=== PATIENT | female | born 1990 | race Caucasian/White ===

== ENCOUNTER → 2016-12-02 | Outpatient (CLI) | payer OTHER | LOC: COL.RAD 06:08 | DX: R11.0 Nausea (principal) | CPT/HCPCS: A9537 ==

== ENCOUNTER → 2017-11-17 | Outpatient (CLI) | payer OTHER | LOC: MC.RAD 08:16 | DX: N64.4 Mastodynia (principal); N64.59 Other signs and symptoms in breast ==

== ENCOUNTER 2020-09-12 09:39 | Outpatient (CLI) | payer BC ==
[~2020-09-12] VITALS: Ht 167.6 cm; Wt 56.0 kg
[2020-09-12 10:29] LABS: HEMOGLOBIN 12.1 g/dl (12.5-16.0); MEAN CELL VOLUME 94 fl (80.0-100.0); MEAN CORPUSCULAR HEMOGLOBIN 33 pg (27.0-31.0); MEAN CORPUSCULAR HGB CONC 35 g/dl (33.0-37.0); MEAN PLATELET VOLUME 10.4 fl (7.4-10.4); PLATELET COUNT 217 K/mm3 (130-400); RED BLOOD COUNT 3.69 M/mm3 (4.10-5.30); REDCELL DISTRIBUTION WIDTH-CV 11.9 % (11.5-14.5)
[2020-09-12 10:30] VITALS: BP 114/48; PULSE 66; TEMP 99
[2020-09-12 10:32] LABS: HEMATOCRIT 34.7 % (37.0-47.0)
[2020-09-12 10:39] LABS: ALBUMIN 3.9 gm/dL (3.5-5.0); BILIRUBIN,TOTAL 0.2 mg/dL (0.0-1.0); CALCIUM 9.2 mg/dL (8.4-10.2); CREATININE, serum 0.66 (0.52-1.25); POTASSIUM 3.9 mmol/L (3.4-5.0); TOTAL PROTEIN 6.9 gm/dL (6.4-8.2)
[2020-09-12 10:47] LABS: LYMPHOCYTE 17 % (20.0-51.0); NEUTROPHILS 78 % (42.0-75.2)
[2020-09-12 10:48] LABS: PLATELET ESTIMATE NORMAL (NORMAL)
[2020-09-12] MEDS ORDERED: ZOFRAN 4MG T4 MG/TAB SL (12:08)
[2020-09-12] MEDS ORDERED: PROMETHAZINE12.5 M5 PO (12:09)
[2020-09-12] MEDS ORDERED: VITAMIN B-6100 MG PO (12:10)
[2020-09-12] MEDS ORDERED: ONE-A-DAY PREN1 EAC1 PO (12:12)
--- NOTE | 2020-09-12 14:00 | NUR ---
iv fluids in, pt states does "feel better" no c/o light headedness, gait stable, up to b/r to void, called OB charge concerning pt possibly wanting heart beat with doppler, pt has not been to office yet for this or first exam not until September 29 at 11 weeks, discussed that will not be able to hear by doppler at this time. iv d'cd, pt discharged ambulatory
== END 2020-09-12 14:15 | disposition home or self-care (01) ==
LOC: EUO 09:39
PROVIDERS: Obstetrics & Gynecology
DX: O21.0 Mild hyperemesis gravidarum (principal); Z3A.08 8 weeks gestation of pregnancy
CPT/HCPCS: J7030

== ENCOUNTER 2021-04-18 09:35 | Inpatient (IN) | payer BC ==
[~2021-04-18] VITALS: Ht 167.6 cm; Wt 65.0 kg
[2021-04-18] VITALS (17 sets, daily range): BP systolic 91–113; BP diastolic 41–95; PULSE 51–111; TEMP 97.7–98.4
[~2021-04-18 09:35] MED LIST: ONE-A-DAY PREN1 EAC1 PO; PROMETHAZINE12.5 M5 PO; VITAMIN B-6100 MG PO; ZOFRAN 4MG T4 MG/TAB SL
[2021-04-18 11:03] LABS: BASO % 0.3 % (0.0-2.0); GRAN # 6.7 K/mm3 (1.4-6.5); GRAN % 74.3 % (42.2-75.2); HEMATOCRIT 35.3 % (37.0-47.0); HEMOGLOBIN 12.3 g/dl (12.5-16.0); LYMPH # 1.7 K/mm3 (1.2-3.4); LYMPH % 19.3 % (20.0-51.0); MEAN CELL VOLUME 100 fl (80.0-100.0); MEAN CORPUSCULAR HEMOGLOBIN 35 pg (27.0-31.0); MEAN CORPUSCULAR HGB CONC 35 g/dl (33.0-37.0); MEAN PLATELET VOLUME 11.5 fl (7.4-10.4); MONO # 0.5 K/mm3 (0.1-0.6); MONO % 5.8 % (1.7-9.3); PLATELET COUNT 166 K/mm3 (130-400); RED BLOOD COUNT 3.53 M/mm3 (4.10-5.30); REDCELL DISTRIBUTION WIDTH-CV 13.2 % (11.5-14.5)
[2021-04-19 04:00] VITALS: BP 107/59; PULSE 62; TEMP 98.1
[2021-04-19 06:44] VITALS: BP 109/69; PULSE 72; TEMP 98
[2021-04-19] MEDS ORDERED: IBU800 M1 PO (08:41)
[2021-04-19] MEDS ORDERED: PERCOCET 325 MG1 TA2 PO (08:41)
--- NOTE | 2021-04-19 09:20 | NUR ---
Initial visit; Parents thanked Radiology Practitioner Assistant for offering congratulations and God's blessings for the of their daughter. Radiology Practitioner Assistant thanked family for choosing [facility].
--- NOTE | 2021-04-19 10:00 | NUR ---
Ambulates in hallways independently following bath demonstration.
[2021-04-19 14:41] VITALS: BP 103/54; PULSE 62; TEMP 98.5
== END 2021-04-19 16:10 | disposition home or self-care (01) | DRG 788 ==
LOC: OB 10:08
PROVIDERS: ADMIT Obstetrics & Gynecology
PROC: 10D00Z1 Extraction of Products of Conception, Low, Open Approach (ICD-10-PCS; principal; 2021-04-18)
DX: O34.211 Maternal care for low transverse scar from previous cesarean delivery (principal); Z37.0 Single live birth; O36.5930 Maternal care for other known or suspected poor fetal growth, third trimester, not applicable or unspecified; O26.893 Other specified pregnancy related conditions, third trimester; Z67.11 Type A blood, Rh negative; Z3A.39 39 weeks gestation of pregnancy; Z23 Encounter for immunization
CPT/HCPCS: J1580; J1885; J2405; J2590; J7120

== ENCOUNTER → 2021-04-27 | Outpatient (CLI) | payer BC ==
[~2021-04-27] MED LIST changes: +IBU800 M1 PO; +PERCOCET 325 MG1 TA2 PO
--- NOTE | 2021-04-27 15:48 | NUR ---
Pt, Betty Mayes, presents for outpatient consult with 9 day old baby girl, Areli Mayes, and her spouse Christopher Mayes. Pt was referred by Dr. Mckeon for evaluation after Areli was seen today and had a weight loss from Areli's appointment 5 days ago. Pt also states she has a very sore left nipple with bleeding at times. Areli was born on [birth year] and weighed 6#0.7oz (2740 gms). She is this patients second baby, she states she breastfed her first baby. Areli was discharged after about 24 hours of life and her weight was 6# 0.3oz. Pt states Areli weighed 6# 4oz on 04/23/21 and today she weighs 5# 15oz at Dr. Mckeon's office. At this office Areli weighs 5# 13.9oz (2662 gms). Pt states baby has QS voids and stools, has normal skin tones, and MAEW. Additionally, Areli has been fed 7-8 times per 24 hours, but the family states she is a "really sleepy baby" going 4+ hours at [facility]. Pt latches baby to the right breast, she appears to have a good latch and swallows are noted. After nursing Areli has a gain of 1.3oz (38 gms). Because of the open wound on the left nipple, a nipple shield was placed. Areli was content to sleep, but with stimulation she gets latched. She seems to nurse with occassional swallows, but did not demonstrate a weight gain after nursing. LC assists with getting Areli on the left breast and able to catch the chin and compress the areola further into Becketts mouth. Good effort is observed with frequent swallows. After effectively on the left breast, Areli has a total gain of 3.2oz (92 gms). POC: Because of extreme soreness and wounding to the left nipple, pt is advised to breastfeed from the right and pump and bottle feed from the left over the weekend to allow wound healing. RX for Freeman's nipple cream requested from Dr. Nagy. Supplement ~1.5oz EBM per feeding. Follow up: With Dr. Mckeon as scheduled on FridayApr 30, and by telephone with this LC to determine next consult to evaluate and latching. Questions invited and answered, pt verbalizes understanding.
== END ==
LOC: LAC 12:41
DX: Z39.1 Encounter for care and examination of lactating mother (principal); Z71.89 Other specified counseling

== ENCOUNTER → 2021-05-07 | Outpatient (CLI) | payer BC ==
--- NOTE | 2021-05-07 14:22 | NUR ---
Pt, Betty Mayes, presents for outpatient consult with 2.5 week old baby girl, Areli Mayes, to re-evaluate milk transfer and soreness to nipples. Areli was born on [birth year] and weighed 6#0.7oz (2741 gms). She was seen by this LC on 04/27/21 and she weighed 5#13.9oz (2662 gms). Because of ongoing soreness and low weight gain in the doctor's office 3 days later, pt advised to pump and bottle feed over the weekend until she was able to be seen today. Today Areli weighs 6#10.4oz for a gain of 12oz over the last 10 days. Pt has been using Freeman's nipple cream and notes some healing. After nursing the right breast, Areli has a gain of 54 gms. Pt advised and coached on a different latching technique on the left side, and Areli is placed in a sitting up position to help manage milk flow. Pt states latching pain is 95% better with this different latch. After nursing Areli has a total weight gain of 114 gms. Pt advised to use latching method learned here and keep Areli upright to help her manage liat flow. Pt is able to pump 6-11oz per pumping session so expect part of the latch pain is from trying to manage flow of milk. POC: Return to using suggestions provided. F/U: one week with this LC. Questions invited and answered.
== END ==
LOC: LAC 12:59
DX: Z39.1 Encounter for care and examination of lactating mother (principal); Z71.89 Other specified counseling

== ENCOUNTER → 2021-05-15 | Outpatient (CLI) | payer BC ==
--- NOTE | 2021-05-15 15:52 | NUR ---
PT, Betty Mayes, presents for outpatient consult with one month old baby girl, Areli Mayes, to ensure Areli continues to gain weight after discontinuation of bottle feeds. Areli had a slow start with weight gain after . Areli was born on [birth year] and weighed 6#0.7oz (2741 gms). She has been feeding from breast exclusively recently. Today Areli weighs 7#6.3oz (3352 gms). After nursing she has a weight gain of 3.4oz. Pt continues to have a centrally located wound on the end of the nipple. She continues to use Freeman's Nipple cream as directed and overall notes some healing and the nursing is tolerable after the initial latch. Pt advised to have Dr. Nagy evaluate if not improved well by post appointment. POC: Breastfeed ad yao. F/U: Dr. Nagy for sore nipple, one month appt with Dr. Mckeon as scheduled. Questions invited and answered.
== END ==
LOC: LAC 14:54
DX: Z39.1 Encounter for care and examination of lactating mother (principal); Z71.89 Other specified counseling

== ENCOUNTER → 2022-02-18 | Outpatient (CLI) | payer BC ==
[2022-02-18 10:35] LABS: CLOSTRIDIUM DIFF A/B NEG; CLOSTRIDIUM DIFF A/B INTERP No C.diff present
== END ==
LOC: COL.LAB 08:50
DX: R19.7 Diarrhea, unspecified (principal)